=== PATIENT | female | born 1985 | race Caucasian/White ===

== ENCOUNTER → 2016-09-21 | Outpatient (CLI) | payer BC ==
[2016-09-21 15:49] VITALS: BP 119/65; PULSE 74; RESP 20; TEMP 97.8; BMI 44.6
--- NOTE | 2016-09-21 16:32 | P.BASOAP ---
Subjective Principal diagnosis: Morbid obesity Patient has had relatively poor follow-up. Surgery was performed last October. Last visit in December of last year. Recently she has felt some fatigue and noticed her weight loss has slowed down. She has lost a total of 86 pounds since her surgery date. Some bloating. Recently has had some abdominal discomfort with meals. She never did take her antiacids post surgery. Denies reflux or heartburn. Because of a new job that she has working at she has struggled with her liquid and protein intake because of restrictions on her time. Objective - Vital Signs Vital signs: Vital Signs Temp 97.8 F 09/21/16 15:44 Pulse 74 09/21/16 15:44 Resp 20 09/21/16 15:44 BP 119/65 09/21/16 15:44 Pulse Ox Intake & Output 09/20/16 09/21/16 09/21/16 18:59 06:59 18:59 Weight 127.233 kg - Exam Abdomen: Soft, nontender, nondistended Assessment/Plan (1) Morbid obesity Narrative/Plan: Will check routine labs at this point. Patient will resume her omeprazole once daily. Patient also plans to make an appointment to see her primary care physician to discuss some of these issues further. If her symptoms persist we' ll plan upper endoscopy. Plan: Date: 09/21/16 Initial Weight: 165.38 kg Initial BMI: 57.9 Current Weight: 127.233 kg Current BMI: 44.6 Type of Surgery: Total Volume in Band: Previous Volume: Volume Removed: Volume Added: Band Size:
[2016-09-21 16:50] LABS: CH 29.8; CHCM 32.9; HCT 39.6 % (34.0-46.0); HDW 2.42; HGB 13.2 gm/dL (11.4-16.0); MCH 30.2 pg (25.0-35.0); MCHC 33.2 g/dL (31.0-37.0); Mean Platelet Volume 7.8; RBC 4.36 m/uL (3.80-5.40); RDW 13.7 % (11.5-15.5); WBC 7.1 k/uL (3.8-10.6)
[2016-09-21 17:07] LABS: ALT 32 U/L (9-52); AST 18 U/L (14-36); Alkaline Phosphatase 75 U/L (38-126); Anion Gap 10 mmol/L; Blood Urea Nitrogen 15 mg/dL (7-17); Calcium 9.1 mg/dL (8.4-10.2); Carbon Dioxide 25 mmol/L (22-30); Chloride 106 mmol/L (98-107); Glucose 88 mg/dL (74-99); Iron 37 ug/dL (37-170); Non-African American GFR(MDRD) >60 (>60 ml/min/1.73 sqM); Sodium 141 mmol/L (137-145); Total Bilirubin 0.6 mg/dL (0.2-1.3); Total Protein 6.8 g/dL (6.3-8.2)
[2016-09-21 18:12] LABS: Vitamin B12 483 pg/mL (239-931)
== END | disposition home or self-care (01) ==
LOC: BARWHC3 14:25
PROVIDERS: ATTEND Surgery
DX: E66.01 Morbid (severe) obesity due to excess calories (principal)
CPT/HCPCS: 80053; 82306; 82607; 82746; 83540; 84425; 84590; 84630; 85027; 99211

== ENCOUNTER → 2018-03-13 | Outpatient (CLI) | payer BC ==
[2018-03-13 13:42] LABS: Creatinine 24 Hour,Urine 1337.9 mg/24hr (800.0-1800.0)
[2018-03-13 19:53] LABS: Total Volume 24 Hour,Urine 1350 mls (800-1800)
[2018-03-14 10:52] LABS: Total Volume 24 Hour,Urine 1350 mL
[2018-03-14 12:20] LABS: Total Protein 24 Hour,Urine 109.4 mg/24Hr
== END ==
LOC: LABWHC1 07:57
PROVIDERS: ATTEND Clinical Nurse Specialist Women's Health
DX: Z34.02 Encounter for supervision of normal first pregnancy, second trimester (principal); Z87.59 Personal history of other complications of pregnancy, childbirth and the puerperium; Z3A.14 14 weeks gestation of pregnancy
CPT/HCPCS: 36415; 81050; 82575; 84156

== ENCOUNTER 2018-08-30 06:10 | Inpatient (IN) | payer BC ==
[2018-08-30] MEDS ORDERED: METHYLERGONOVINE 0.2 MG/ML 1 ML AMP IM PRN (06:18)
[2018-08-30] MEDS ORDERED: LIDOCAINE 0.5% (PF) 5 MG/ML (50 ML SDV) SQ PRN (06:18)
[2018-08-30] MEDS ORDERED: OXYTOCIN 10 UNIT/ML 1 ML VIAL IM PRN (06:18)
[2018-08-30] MEDS ORDERED: CARBOPROST TROMETHAMINE 250 MCG/ML 1 ML AMP IM PRN (06:18)
[2018-08-30] MEDS ORDERED: TERBUTALINE 1 MG/ML VIAL SQ PRN (06:18)
[2018-08-30] MEDS: LACTATED RINGERS 1,000 ML IV SCH ×2 (06:28→11:01)
[2018-08-30] MEDS ORDERED: OXYTOCIN 30 UNITS/500 ML NS 30 UNIT in SALINE 1 500ML.BAG IV SCH (06:30)
[2018-08-30 06:56] LABS: Basophils % (A) 0 %; Eosinophils # (A) 0.1 k/uL (0-0.7); Eosinophils % (A) 1 %; HCT 37.3 % (34.0-46.0); HGB 12.3 gm/dL (11.4-16.0); Lymphocytes # (A) 2.2 k/uL (1.0-4.8); Lymphocytes % (A) 22 %; MCH 28.5 pg (25.0-35.0); MCHC 32.9 g/dL (31.0-37.0); MCV 86.6 fL (80.0-100.0); Mean Platelet Volume 8.5; Monocytes # (A) 0.3 k/uL (0-1.0); Monocytes % (A) 3 %; Neutrophils # (A) 7.1 k/uL (1.3-7.7); Neutrophils % (A) 72 %; Platelet Count 267 k/uL (150-450); RBC 4.31 m/uL (3.80-5.40); RDW 15.6 % (11.5-15.5); WBC 9.9 k/uL (3.8-10.6)
[2018-08-30 07:14] VITALS: BMI 48.5
--- NOTE | 2018-08-30 07:25 | P.HPOB ---
History of Present Illness H&P Date: 08/30/18 This is a 33-year-old white female 2 para 1001 EDC 09/03/2018 at 39-3/7 weeks' gestation. Patient presents today for induction with favorable multiparous cervix. Fetus is been active throughout the . She is reporting mild irregular contractions spontaneously. She denies fluid leakage or vaginal bleeding. Past medical history is significant for no issues. Past surgical history cholecystectomy, gastric sleeve procedure 2016, wisdom teeth extracted. Current medications vitamins daily. ALLERGIES none known. Family history significant for renal cell carcinoma, thyroid disease, hypertension and diabetes. Reproductive history normal spontaneous vaginal delivery 2014, unremarkable. Social history patient has never been a smoker, she denies alcohol or drug use. She works with the [employer], she is . history is significant for blood type A+, rubella status immune. VDRL testing, urine culture, hepatitis B surface antigen, HIV testing, gonorrhea and chlamydia cultures, group B strep cultures all negative. One-hour Glucola 91. On exam this is a pleasant white female, 5 foot 7 inches, 310 pounds, blood pressure 137/72, vital signs are stable and she is afebrile. The general physical exam is within normal limits. Chest is clear. Extremities reveal no edema. Cervix is 3-4 cm dilated, 60-70% effaced, -2 station, vertex presentation. Artificial amniorrhexis reveals clear fluid. heart tones are consistent with reactive NST. Impression: 39-3/7 weeks intrauterine , here for induction of labor, all signs reassuring. Plan: I have reviewed with the patient options for analgesia. Oxytocin per hospital protocol. Continue close maternal and surveillance. Anticipate normal spontaneous vaginal delivery. Review of Systems Negative except as in HPI. Past Medical History Past Medical History: GERD/Reflux Additional Past Medical History / Comment(s): chronic low back pain, left knee pain. Lapband 2013 History of Any Multi-Drug Resistant Organisms: None Reported Past Surgical History: Bariatric Surgery, Cholecystectomy, Tubal Ligation Additional Past Surgical History / Comment(s): wisdom teeth removed, [id number] l apband, sleeve gastrectomy 11/13. Past Anesthesia/Blood Transfusion Reactions: Motion Sickness Past Psychological History: No Psychological Hx Reported Smoking Status: Never smoker Past Alcohol Use History: Occasional Past Drug Use History: None Reported - Past Family History Mother Family Medical History: Cancer Additional Family Medical History / Comment(s): renal cell. dads hx: diabetes, hypertension. Father Family Medical History: Diabetes Mellitus, Hypertension Additional Family Medical History / Comment(s): degenerative disc disease Medications and Allergies Home Medications Medication Instructions Recorded Confirmed Type Multivitamins, Thera [Multivitamin 1 tab PO DAILY 09/23/16 08/30/18 History (formulary)] Allergies Allergy/AdvReac Type Severity Reaction Status Date / Time No Known Allergies Allergy Verified 01/20/16 15:28 Exam Intake and Output 08/29/18 08/30/18 08/30/18 22:59 06:59 14:59 Other: Weight 140.614 kg See dictation under HPI please Results Result Diagrams: 08/30/18 06:24 Abnormal Lab Results - Last 24 Hours (Table) 08/30/18 Range/Units 06:24 RDW 15.6 H (11.5-15.5) % Assessment and Plan Assessment: 39-3/7 weeks intrauterine , here for elective induction of labor. All signs reassuring. Plan: Oxytocin per hospital protocol. Continue close maternal and surveillance. Analgesic options have been reviewed with the patient. Anticipate normal spontaneous vaginal delivery. Time with Patient: Less than 30
[2018-08-30] MEDS ORDERED: ROPIVACAINE 100 MG, fentaNYL (PF) 200 MCG in SODIUM CHLORIDE 0.9% 76 ML EPIDURAL ONE (11:33)
[2018-08-30] MEDS ORDERED: diphenhydrAMINE 50 MG CAP PO PRN (16:46)
[2018-08-30] MEDS ORDERED: LANOLIN CREAM 5 GM TUBE TOPICAL PRN (16:46)
[2018-08-30] MEDS ORDERED: WITCH HAZEL 1 EACH MED..PAD TOPICAL PRN (16:46)
[2018-08-30] MEDS ORDERED: HYDROCORTISONE 2.5% RECTAL CREAM 30 GM TUBE RECTAL PRN (16:46)
[2018-08-30] MEDS ORDERED: diphenhydrAMINE 25 MG CAP PO PRN (16:46)
[2018-08-30] MEDS ORDERED: ACETAMINOPHEN TAB 325 MG TAB PO PRN (16:46)
[2018-08-30] MEDS ORDERED: SIMETHICONE 80 MG CHEWABLE PO PRN (16:46)
[2018-08-30] MEDS ORDERED: ZOLPIDEM 5 MG TAB PO PRN (16:46)
[2018-08-30] MEDS ORDERED: diphenhydrAMINE 50 MG/ML 1 ML VIAL IVP PRN ×2 (16:46)
[2018-08-30] MEDS ORDERED: BENZOCAINE/MENTHOL SPRAY 1 GM/SPRAY AEROSOL TOPICAL PRN (16:46)
[2018-08-30] MEDS ORDERED: OXYTOCIN 20 UNITS/1000 ML NS 1,000 ML IV SCH (17:00)
--- NOTE | 2018-08-30 17:53 | DN ---
DELIVERY SUMMARY DATE OF DELIVERY: 08/30/2018 This is a 33-year-old white female, 2, para 1-0-0-1, EDC 09/03/2018, at 39 and 3/7 weeks gestation. Patient presented for induction with a favorable multiparous cervix. Group B strep culture is negative. Blood type A positive, rubella status immune. Please see dictated history and physical for details. Artificial Amniorrhexis revealed clear fluid. Oxytocin was started and titrated per hospital protocol. She progressed well through the 1st stage of labor. She requested an epidural and this was placed without difficulty per the anesthesia staff. heart tones were reassuring throughout the 1st and 2nd stages of labor. She was judged to be completely dilated at 4:13 pm. The perineal body was prepped and draped in the usual sterile fashion. With excellent maternal expulsive efforts, the 's head delivered occiput anterior. She restituted accordingly. There was no nuchal cord noted. The right or anterior shoulder was gently delivered from underneath the pubic symphysis at which time the oropharynx, nasopharynx, and external nares were bulb suctioned on the perineum. Patient was officially delivered of a live-born female infant at 4:16 pm. Umbilical cord was doubly clamped and ligated, she was handed to waiting nurses for evaluation where scores of 9 and 9 at 1 and 5 minutes respectively were given. The placenta delivered spontaneously, it was inspected and noted to be intact with trivascular cord at 4:18 pm. Now the perineal body is redraped. Inspection of the cervix, vagina, perineum, periurethral, and perirectal areas reveals a small first-degree midline laceration. This is repaired with a single [id number] suture of 3-0 Vicryl. Uterus is firm and in the midline, symmetric and 18 week size. All sponge, needle, and instrument counts were correct at the end of this procedure. weighs 6 pounds 14.4 ounces or 3130 g. TOTAL ESTIMATED BLOOD LOSS: 250 mL. The patient and her family are allowed to begin the bounding experience in the LDR. MMODL / IJN: [id number] /
[2018-08-30] MEDS: IBUPROFEN 600 MG TAB PO PRN (21:48)
[2018-08-30] MEDS: SENNOSIDES-DOCUSATE SODIUM 1 EACH TAB PO SCH ×2 (21:48→21:49)
[2018-08-31] MEDS: IBUPROFEN 600 MG TAB PO PRN ×2 (08:01→16:36)
[2018-08-31] MEDS: SENNOSIDES-DOCUSATE SODIUM 1 EACH TAB PO SCH (08:03)
[2018-08-31 08:14] VITALS: RESP 18; TEMP 98.1
--- NOTE | 2018-08-31 09:03 | P.DS ---
Providers Date of admission: 08/30/18 06:10 Expected date of discharge: 08/31/18 Attending physician: Blanche aPt Primary care physician: Stated None - Discharge Diagnosis(es) (1) Elective induction of labor planned Current Visit: No Status: Acute (2) Morbid obesity Current Visit: No Status: Acute (3) Normal vaginal delivery Current Visit: No Status: Acute (4) Perineal laceration with delivery, first degree Current Visit: Yes Status: Acute Hospital Course: This is a 33-year-old 2 now para 2 woman who is admitted at 39-3/7 weeks gestation for elective induction of labor with a favorable cervix. Please see the admission history and physical for details. Following admission she underwent a Pitocin induction of labor per protocol. She had artificial rupture of membranes. She received an epidural anesthetic. She had an unremarkable first and second stage of labor to deliver a liveborn female infant over a first-degree perineal laceration. Apgars were 9 at 1 minute and 9 at 5 minutes. Please see the delivery summary for details. The patient's course was unremarkable. By day #1 she was ambulating and voiding without difficulty, her lochia was decreasing, she was breast-feeding successfully, her vital signs were stable and her pain was well-controlled. She was therefore discharged home with routine instructions for care and follow-up Procedures: Normal spontaneous vaginal delivery Patient Condition at Discharge: Good Plan - Discharge Summary New Discharge Prescriptions: New Ibuprofen [Motrin] 600 mg PO Q6HR PRN tab PRN Reason: Mild Pain Or Fever >= 100.5 No Action Multivitamins, Thera [Multivitamin (formulary)] 1 tab PO DAILY Discharge Medication List Multivitamins, Thera [Multivitamin (formulary)] 1 tab PO DAILY 09/23/16 [History] Ibuprofen [Motrin] 600 mg PO Q6HR PRN tab 08/31/18 [Rx] Follow up Appointment(s)/Referral(s): Blanche Pta MD [STAFF PHYSICIAN] - 6 Weeks Activity/Diet/Wound Care/Special Instructions: Follow-up in the office in 6 weeks . Call with any concerning signs or symptoms including heavy vaginal bleeding, severe abdominal pain, fever greater than 101, swelling or redness of the lower extremities, foul vaginal discharge, or signs of depression. Nothing in the vagina for 6 weeks after delivery, specifically no intercourse. Discharge Disposition: HOME SELF-CARE
[2018-08-31 16:26] VITALS: BP 123/72; PULSE 79
== END 2018-08-31 16:45 | disposition home or self-care (01) | DRG 807 ==
LOC: 4FBP 06:10
PROVIDERS: ADMIT Obstetrics & Gynecology; ATTEND Obstetrics & Gynecology
PROC: 10E0XZZ Delivery of Products of Conception, External Approach (ICD-10-PCS; principal; 2018-08-30)
PROC: 0HQ9XZZ Repair Perineum Skin, External Approach (ICD-10-PCS; 2018-08-30)
PROC: 00HU33Z Insertion of Infusion Device into Spinal Canal, Percutaneous Approach (ICD-10-PCS; 2018-08-30)
PROC: 3E0R3BZ Introduction of Anesthetic Agent into Spinal Canal, Percutaneous Approach (ICD-10-PCS; 2018-08-30)
PROC: 3E033VJ Introduction of Other Hormone into Peripheral Vein, Percutaneous Approach (ICD-10-PCS; 2018-08-30)
PROC: 10907ZC Drainage of Amniotic Fluid, Therapeutic from Products of Conception, Via Natural or Artificial Opening (ICD-10-PCS; 2018-08-30)
DX: O70.0 First degree perineal laceration during delivery (principal); Z37.0 Single live birth; E66.01 Morbid (severe) obesity due to excess calories; O99.214 Obesity complicating childbirth; O99.844 Bariatric surgery status complicating childbirth; O99.62 Diseases of the digestive system complicating childbirth; K21.9 Gastro-esophageal reflux disease without esophagitis; Z3A.39 39 weeks gestation of pregnancy; G89.29 Other chronic pain; M54.5 Low back pain; M25.562 Pain in left knee; Z79.899 Other long term (current) drug therapy; Z90.49 Acquired absence of other specified parts of digestive tract; Z98.51 Tubal ligation status; Z80.51 Family history of malignant neoplasm of kidney; Z83.3 Family history of diabetes mellitus; Z83.49 Family history of other endocrine, nutritional and metabolic diseases; Z82.49 Family history of ischemic heart disease and other diseases of the circulatory system; Z82.69 Family history of other diseases of the musculoskeletal system and connective tissue
CPT/HCPCS: 85025; 86850; 86900; 86901

== ENCOUNTER → 2021-01-21 | Outpatient (CLI) | payer BC ==
[2021-01-21 15:16] LABS: Basophils # (A) 0.03 X 10*3/uL (0.00-0.10); Basophils % (A) 0.5 %; Eosinophils # (A) 0.13 X 10*3/uL (0.04-0.35); Eosinophils % (A) 2.3 %; HCT 40.1 % (37.2-46.3); HGB 12.4 g/dL (12.0-15.0); Lymphocytes % (A) 30.7 %; MCH 27.5 pg (27.0-32.0); MCHC 30.9 g/dL (32.0-37.0); MCV 88.9 fL (80.0-97.0); Mean Platelet Volume 12.1 fL (9.5-12.2); Monocytes % (A) 5.4 %; Neutrophils # (A) 3.37 X 10*3/uL (1.80-7.70); Neutrophils % (A) 60.9 %; Platelet Count 248 X 10*3/uL (140-440); RBC 4.51 X 10*6/uL (4.10-5.20); RDW 14.2 % (11.5-14.5); WBC 5.54 X 10*3/uL (4.50-10.00)
[2021-01-21 17:42] LABS: ALT 12 U/L (8-44); AST 21 U/L (13-35); African American GFR (CKD) 131.5 (60.0-200.0); Albumin/Globulin Ratio 1.29 (1.60-3.17); Alkaline Phosphatase 71 U/L (41-126); BUN/Creat Ratio 11.34 Ratio (12.00-20.00); Blood Urea Nitrogen 7.7 mg/dL (9.0-27.0); Carbon Dioxide 18.4 mmol/L (20.0-27.5); Chloride 107 mmol/L (96-109); Chol/HDL Ratio 2.74 Ratio; Globulin 3.1 g/dL (1.6-3.3); Glucose 78 mg/dL (70-110); LDL Cholesterol,Calculated 87.6 mg/dL (0.0-131.0); Non-African American GFR(CKD) 113.5 (60.0-200.0); Sodium 142 mmol/L (135-145)
== END | disposition home or self-care (01) ==
LOC: LABWHC1 09:16
PROVIDERS: ATTEND Family Medicine
DX: Z13.220 Encounter for screening for lipoid disorders (principal); Z13.228 Encounter for screening for other metabolic disorders; Z13.0 Encounter for screening for diseases of the blood and blood-forming organs and certain disorders involving the immune mechanism; Z13.29 Encounter for screening for other suspected endocrine disorder; E56.9 Vitamin deficiency, unspecified
CPT/HCPCS: 36415; 80053; 80061; 82306; 84443; 85025